=== PATIENT | female | born 1985 | race Asian ===

== ENCOUNTER 2017-11-17 05:18 | Inpatient (IN) | payer OTHER ==
[2017-11-14 13:15] VITALS: BMI 23.7
[2017-11-17] MEDS ORDERED: BUPIVACAINE HCL/PF 0.5% (5MG/ML) 10 ML VIAL ONE (07:39)
[2017-11-17] MEDS ORDERED: GENTAMICIN SO4 80 MG/2 ML VIAL ONE (07:39)
[2017-11-17] MEDS ORDERED: THROMBIN (BOVINE) 5,000 UNIT VIAL TP ONE ×2 (07:40→07:41)
[2017-11-17] MEDS ORDERED: BACITRACIN 15 GM TUBE TOPICAL OINTMENT ONE (07:40)
[2017-11-17] MEDS ORDERED: LIDOCAINE 1%/EPI 1:100000 (20 ML MULTI DOSE VIAL) ONE (07:41)
[2017-11-17] MEDS ORDERED: ROCURONIUM BROMIDE 50 MG/5 ML VIAL ONE ×2 (07:42→09:51)
[2017-11-17] MEDS ORDERED: PROPOFOL 20 ML ONE (07:42)
[2017-11-17] MEDS ORDERED: MIDAZOLAM HCL 2 MG/2 ML SINGLE DOSE VIAL ONE (07:43)
[2017-11-17] MEDS ORDERED: LIDOCAINE HCL/PF 2% SDV 5ML VIAL ONE (07:44)
[2017-11-17] MEDS ORDERED: SCOPOLAMINE HYDROBROMIDE 1 PATCH PATCH.TD72 ONE (08:26)
[2017-11-17] MEDS ORDERED: DESFLURANE GAS 240 ML BOTTLE IH ONE (08:40)
[2017-11-17] MEDS ORDERED: VANCOMYCIN 1,000 MG VIAL (RESTRICTED TO ID ONLY) ONE ×2 (08:41→09:04)
[2017-11-17] MEDS ORDERED: SODIUM CHLORIDE 0.9% P/F 10 ML VIAL IJ ONE ×2 (08:44→09:04)
[2017-11-17] MEDS ORDERED: ceFAZolin SODIUM 1 GM VIAL ONE ×2 (08:44→09:03)
[2017-11-17] MEDS ORDERED: DEXAMETHASONE SOD PHOSPHATE 4 MG/1 ML VIAL ONE (08:47)
[2017-11-17] MEDS ORDERED: ONDANSETRON 4 MG/2 ML VIAL ONE (08:47)
[2017-11-17] MEDS ORDERED: ceFAZolin SODIUM 1 GM VIAL IVPB ONE (09:04)
[2017-11-17] MEDS ORDERED: VANCOMYCIN 1,000 MG VIAL (RESTRICTED TO ID ONLY) IVPB ONE (09:06)
[2017-11-17] MEDS ORDERED: LIDOCAINE 1%/EPI 1:100000 (50 ML MULTI DOSE VIAL) INF ONE (09:35)
[2017-11-17] MEDS ORDERED: GLYCOPYRROLATE 0.2 MG/1 ML VIAL ONE (12:21)
[2017-11-17] MEDS ORDERED: NEOSTIGMINE METHYLSULFATE 0.5 MG/ML - 10 ML MDV ONE (12:22)
[2017-11-17] MEDS ORDERED: BUPIVACAINE HCL/PF 0.5% (5MG/ML) 10 ML VIAL IJ ONE (12:30)
[2017-11-17] MEDS ORDERED: HYDROmorphone HCL CARPU-JECT 1 MG/1 ML DISP.SYRIN IVPUSH PRN (13:16)
[2017-11-17] MEDS ORDERED: PROMETHAZINE HCL 25 MG/1 ML VIAL IVPUSH PRN (13:16)
[2017-11-17] MEDS ORDERED: ONDANSETRON 4 MG/2 ML VIAL IVPUSH PRN ×3 (13:16→15:20)
[2017-11-17] MEDS ORDERED: LACTATED RINGERS SOLUTION 1,000 ML IV SCH (13:30)
[2017-11-17] MEDS ORDERED: SODIUM CHLORIDE 1,000 ML IV SCH (14:00)
[2017-11-17] MEDS ORDERED: oxyCODONE HCL 5 MG TABLET PO PRN ×2 (14:11→14:12)
--- NOTE | 2017-11-17 14:54 | HP ---
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 She had spinal surgery C5- C7 in 2012 and then refusion in [place] that rendered her neck flexed forward. Today, she underwent surgery to correct her cervical kyphosis w cord thethering. We have been consulted for medical management. Limitations to Obtaining History: No Limitations - Past Medical History ...LMP: 11/11/17 ...: No - Smoking History Smoking history: Never smoked - Alcohol/Substance Use Hx Alcohol Use: No Home Medications - Allergies Allergies/Adverse Reactions: Allergies Allergy/AdvReac Type Severity Reaction Status Date / Time No Known Allergies Allergy Verified 11/17/17 06:58 - Home Medications Home Medications: Ambulatory Orders Multivitamin [One Daily] 1 each PO DAILY 11/14/17 Pregabalin [Lyrica] 90 mg PO DAILY 11/14/17 Review of Systems - Review of Systems Constitutional: reports: No Symptoms Eyes: reports: No Symptoms HENT: reports: No Symptoms Neck: reports: Other (neck pain) Cardiovascular: reports: No Symptoms Respiratory: reports: No Symptoms Gastrointestinal: reports: No Symptoms Genitourinary: reports: No Symptoms Musculoskeletal: reports: No Symptoms Neurological: reports: Headache Endocrine: reports: No Symptoms Hematology/Lymphatic: reports: No Symptoms Psychiatric: reports: No Symptoms Physical Examination Vital Signs: Vital Signs Temperature 98.3 F 11/17/17 13:11 Pulse Rate 96 H 11/17/17 14:25 Respiratory Rate 14 11/17/17 14:25 Blood Pressure 96/53 11/17/17 14:25 O2 Sat by Pulse Oximetry (%) 100 11/17/17 14:25 Constitutional: Yes: Calm HENT: Yes: WNL Neck: Yes: Other (C collar placed, + neck tenderness, + JENNIFER drain sanguinous drainage (scant)) Cardiovascular: Yes: Regular Rate and Rhythm, S1, S2 Respiratory: Yes: Regular, Other (clear anteriorly) Gastrointestinal: Yes: Soft Renal/: Yes: Burnham Present Edema: No Peripheral Pulses WNL: Yes Neurological: Yes: Alert, Oriented Imaging - Results Chest X-ray: Report Reviewed Cat Scan: Report Reviewed Assessment/Plan 31 year old female s/p cervical fusion surgery Plan: 1. Cervical surgery - s/p C4-T1 fusion, C5-C7, with unteathering of spinal cord - Maintain C collar 23 hrs/day - Maintain jennifer drain - Complete post op abx-cefazolin - Aggressive pain control - Cont gentle LR - Regular diet - Maintain tr burnham tomorrow - Neurosurgery following 2. DVT ppc - SCDs Visit type - Emergency Visit Emergency Visit: Yes ED Registration Date: 11/17/17 Care time: The patient presented to the Emergency Department on the above date and was hospitalized for further evaluation of their emergent condition. - New Patient This patient is new to me today: Yes Date on this admission: 11/17/17 - Critical Care Critical Care patient: No
[2017-11-17] MEDS ORDERED: PROMETHAZINE HCL 25 MG/1 ML VIAL IVPB PRN (15:20)
[2017-11-17] MEDS ORDERED: DEXAMETHASONE SOD PHOSPHATE 4 MG/1 ML VIAL IVPUSH PRN (15:20)
[2017-11-17] MEDS ORDERED: HYDROmorphone *PCA* 6MG/30ML DISP.SYRIN PCA ONE ×2 (15:28→23:22)
[2017-11-17] MEDS ORDERED: CEFAZOLIN 1 GM PUSH 1 GM/10 ML DISP.SYRIN IVPUSH SCH (17:00)
[2017-11-17] MEDS ORDERED: FLU VACCINE QUAD 60 MCG/0.5 ML (MDV 17-18) IM ONE (17:00)
[2017-11-17] MEDS: HEPARIN NA (PORCINE) 5,000 UNITS/ML 1ML VIAL SQ SCH (17:27)
--- NOTE | 2017-11-17 20:40 | CONSULT ---
Consult Consult Specialty:: Pulm/CCM - History of Present Illness Chief Complaint: Cervical Kyphosis s/p surgical spine fusion History of Present Illness: 31 juan luis with PMHx of neurofibromatosis. She is s/p spinal surgery C5-C7 in [place] 2012 with refusion in [place] c/b cervical kyphosis and neck pain She is now s/ p C4-T1 fusion with untethering of spinal cord . She is transferred to ICU for post-op management. In ICU rec'd HD stable, drowsy but oriented and moving all extremities. C/o surgical site pain 5-6/10 and of persistent BUE numbness. Getting PRODUCT MARKETING ANALYST dilaudid. - History Source History Provided By: Patient, Medical Record - Past Medical History ...LMP: 11/11/17 ...: No - Alcohol/Substance Use Hx Alcohol Use: No - Smoking History Smoking history: Never smoked - Social History ADL: Independent Home Medications - Allergies Allergies/Adverse Reactions: Allergies Allergy/AdvReac Type Severity Reaction Status Date / Time No Known Allergies Allergy Verified 11/17/17 06:58 - Home Medications Home Medications: Ambulatory Orders Multivitamin [One Daily] 1 each PO DAILY 11/14/17 Pregabalin [Lyrica] 90 mg PO DAILY 11/14/17 Family Disease History - Family Disease History Family History: Unremarkable Review of Systems - Review of Systems Constitutional: reports: No Symptoms Eyes: reports: No Symptoms (Neck pain) Neck: reports: Pain on Movement, Stiffness Cardiovascular: reports: No Symptoms Respiratory: reports: No Symptoms Gastrointestinal: reports: No Symptoms Genitourinary: reports: No Symptoms Integumentary: reports: No Symptoms Neurological: reports: Dizziness, Numbness (numbness in upper extremity) Endocrine: reports: No Symptoms Hematology/Lymphatic: reports: No Symptoms Psychiatric: reports: No Symptoms Physical Exam Vital Signs: Vital Signs Temperature 98 F 11/17/17 15:52 Pulse Rate 94 H 11/17/17 18:49 Respiratory Rate 22 11/17/17 18:49 Blood Pressure 111/83 11/17/17 18:49 O2 Sat by Pulse Oximetry (%) 100 11/17/17 14:40 Constitutional: Yes: Well Nourished, No Distress, Calm Eyes: Yes: WNL, PERRL HENT: Yes: Atraumatic, Normocephalic Neck: Yes: Other (Cervical collar in Place. Posterior PARTHA to bulb suction with small amt dark bloody fluid) Cardiovascular: Yes: Regular Rate and Rhythm, Tachycardia, S1, S2 Respiratory: Yes: CTA Bilaterally, On Nasal O2 Gastrointestinal: Yes: Normal Bowel Sounds, Soft Renal/: Yes: Burnham Present Extremities: Yes: WNL Edema: No Integumentary: Yes: WNL Wound/Incision: Yes: Dressing Dry and Intact Neurological: Yes: Oriented, Numbness (Drowsy; c/o numbness in bilat fingers and pain at surgical site) ...Motor Strength: WNL Labs: Current Medications Acetaminophen (Tylenol -) 650 mg PO Q6H PRN PRN Reason: FEVER Chlorhexidine Gluconate (Hibiclens For Decolonization -) 1 applic TP HS [facility] Fentanyl (Sublimaze Injection -) 50 mcg IVPUSH [id number] PRN PRN Reason: PAIN-PACU ORDER X 4 DOSES ONLY Fentanyl (Sublimaze Injection -) 50 mcg IVPUSH [id number] PRN PRN Reason: PAIN-PACU ORDER X 4 DOSES ONLY Last Admin: 11/17/17 14:40 Dose: 50 mcg Gabapentin (Neurontin -) 300 mg PO BID [facility] Heparin Sodium (Porcine) (Heparin -) 5,000 unit SQ Q8H-IV [facility] Last Admin: 11/17/17 17:27 Dose: 5,000 unit Hydromorphone HCl (Dilaudid Injection -) 0.5 mg IVPUSH [id number] PRN PRN Reason: MODERATE PAIN Hydromorphone HCl (Dilaudid Cooler Deliverer -) 0 mg PRODUCT MARKETING ANALYST PRODUCT MARKETING ANALYST LISS PRN Reason: Protocol Stop: 11/24/17 15:20 Sodium Chloride (Normal Saline -) 1,000 mls @ 100 mls/hr IV ASDIR [facility] Last Admin: 11/17/17 15:00 Dose: 0 mls Cefazolin Sodium (Ancef -) 1 gm in 10 mls @ 120 mls/hr IVPUSH Q8H-IV [facility] Mupirocin (Bactroban Ointment (For Decolonization) -) 1 applic NS BID [facility] Stop: 11/22/17 21:59 Ondansetron HCl (Zofran Injection) 4 mg IVPUSH Q4H PRN PRN Reason: NAUSEA AND/OR VOMITING Oxycodone HCl (Roxicodone -) 5 mg PO Q4H PRN PRN Reason: PAIN LEVEL 1-5 Oxycodone HCl (Roxicodone -) 10 mg PO Q4H PRN PRN Reason: PAIN LEVEL 6-10 Pantoprazole Sodium (Protonix -) 40 mg PO DAILY [facility] Promethazine HCl (Phenergan Injection -) 12.5 mg IVPUSH Q6H PRN PRN Reason: NAUSEA-FOR RESCUE AFTER 15 MIN Promethazine HCl (Phenergan Injection -) 12.5 mg IVPB Q6H PRN PRN Reason: NAUSEA AND/OR VOMITING Vital Signs Period Temp Pulse Resp BP Sys/Pastrana Pulse Ox Last 24 Hr 98 F-98.3 F 81-113 12-22 94-126/51-83 100-100 Problem List - Problems (1) Neck pain Code(s): M54.2 - CERVICALGIA (2) Cervical kyphosis Code(s): M40.202 - UNSPECIFIED KYPHOSIS, CERVICAL REGION (3) Neuropathy Code(s): G62.9 - POLYNEUROPATHY, UNSPECIFIED (4) Post-op pain Code(s): G89.18 - OTHER ACUTE POSTPROCEDURAL PAIN (5) S/P spinal surgery Code(s): Z98.890 - OTHER SPECIFIED POSTPROCEDURAL STATES Assessment/Plan 31 juan luis with PMHx of neurofibromatosis s/p spinal surgery C5-C7 in 2012 with refusion c/b cervical kyphosis and neck pain She is now s/p C4-T1 fusion with untethering of spinal cord . She is transferred to ICU for post-op management. Plan: -Post-op management as per neuro surgery -Maintain cervical collar -Maintain PARTHA to bulb; monitor output -Neuro checks -Continue Kefzol -Cont IV infusion -Maintain burnham cath -Dilaudid PRODUCT MARKETING ANALYST for post-op pain -Aspiration precautions re drowsiness -SCDs for DVT prophylaxis RAYMOND Parikh CC time 35mins
[2017-11-17] MEDS: CHLORHEXIDINE GLUCONATE 4% CLEANSER FOR DECOLONIZATION TP SCH (21:48)
[2017-11-17] MEDS: MUPIROCIN 2% TOPICAL OINTMENT FOR DECOLONIZATION NS SCH (21:48)
[2017-11-17] MEDS: GABAPENTIN 300 MG CAPSULE (FP) PO SCH (21:48)
[2017-11-17] MEDS: HYDROmorphone *PCA* 10MG/50ML DISP.SYRIN PCA SCH (21:49)
[2017-11-18] MEDS: CEFAZOLIN 1 GM PUSH 1 GM/10 ML DISP.SYRIN IVPUSH SCH ×3 (01:45→17:14)
[2017-11-18] MEDS: HEPARIN NA (PORCINE) 5,000 UNITS/ML 1ML VIAL SQ SCH ×4 (01:49→21:53)
[2017-11-18 06:08] LABS: HEMATOCRIT 29.6 % (32.4-45.2); HEMOGLOBIN 9.6 GM/dL (10.7-15.3); MCH 29.5 pg (25.7-33.7); MCHC 32.4 g/dl (32.0-36.0); MEAN CELL VOLUME 91.1 fl (80-96); MEAN PLT VOLUME 8.9 fl (7.5-11.1); PLATELET COUNT 283 K/MM3 (134-434); RBC 3.25 M/mm3 (3.60-5.2); RDW 13.6 % (11.6-15.6); WHITE BLOOD COUNT 7.7 K/mm3 (4.0-10.0)
[2017-11-18 06:43] LABS: CHLORIDE 104 mmol/L (98-107); SODIUM 140 mmol/L (136-145)
[2017-11-18 06:56] LABS: ALBUMIN 2.8 g/dl (3.4-5.0); ALK PHOS 57 U/L (45-117); ANION GAP 7 (8-16); BILIRUBIN,TOTAL 0.6 mg/dL (0.2-1.0); BLOOD UREA NITROGEN 3 mg/dL (7-18); CALCIUM 7.9 mg/dL (8.5-10.1); CO2 29 mmol/L (21-32); CREATININE 0.4 mg/dL (0.55-1.02); GLUCOSE,RANDOM 89 mg/dL (74-106); SGOT/AST 19 U/L (15-37); SGPT/ALT 16 U/L (12-78); TOT PROT 5.9 g/dl (6.4-8.2)
--- NOTE | 2017-11-18 09:01 | PN ---
Progress Note (short form) - Note Progress Note: Post op day#1.S/P C4-T1 Poserior exploration of spine with decompression,C7-T1 osteotomy,C4-T1 instrumentation with fusion and durotomy with untethering of spinal cord under GA uneventful.P 100,Bp99/48 and Spo2 100% on O2 #L NC.Patient stable and c/o pain score of 4-5/10 on Dilaudid HOSPICE NURSE PRACTITIONER,Neurontin and Oxycodone PRN.Will continue HOSPICE NURSE PRACTITIONER today and will f/u.
[2017-11-18] MEDS: GABAPENTIN 300 MG CAPSULE (FP) PO SCH ×2 (10:08→21:55)
[2017-11-18] MEDS: PANTOPRAZOLE 40 MG TABLET (FP) PO SCH (10:08)
[2017-11-18] MEDS: MUPIROCIN 2% TOPICAL OINTMENT FOR DECOLONIZATION NS SCH ×2 (11:04→21:54)
--- NOTE | 2017-11-18 11:09 | PN ---
Teaching Attending Note Name of Resident: Hector Perez ATTENDING PHYSICIAN STATEMENT I saw and evaluated the patient. I reviewed the resident's note and discussed the case with the resident. I agree with the resident's findings and plan as documented. SUBJECTIVE: Patient seen and examined in the ICU. Drowsy but arousbale on Dilaudid HUMAN RESOURCES MANAGER MANUFACTURING. Hemodynamics stable and afebrile overnight. Reports pain at the surgical site and numbness in the upper extremities. No CP or SOB. Intake & Output 11/15/17 11/16/17 11/17/17 11/18/17 23:59 23:59 23:59 23:59 Intake Total 2410 1150 Output Total 1745 830 Balance 665 320 Last Vital Signs Temp Pulse Resp BP Pulse Ox 98 F 106 H 16 102/60 100 11/18/17 06:00 11/18/17 10:00 11/18/17 10:31 11/18/17 10:00 11/18/17 10:31 Active Medications Acetaminophen (Tylenol -) 650 mg PO Q6H PRN PRN Reason: FEVER Chlorhexidine Gluconate (Hibiclens For Decolonization -) 1 applic TP HS [facility] Last Admin: 11/17/17 21:48 Dose: 1 applic Gabapentin (Neurontin -) 300 mg PO BID [facility] Last Admin: 11/18/17 10:08 Dose: 300 mg Heparin Sodium (Porcine) (Heparin -) 5,000 unit SQ TID [facility] Hydromorphone HCl (Dilaudid Injection -) 0.5 mg IVPUSH [id number] PRN PRN Reason: MODERATE PAIN Hydromorphone HCl (Dilaudid Shrimp Peeler -) 0 mg HUMAN RESOURCES MANAGER MANUFACTURING HUMAN RESOURCES MANAGER MANUFACTURING LISS PRN Reason: Protocol Stop: 11/24/17 15:20 Last Admin: 11/17/17 21:49 Dose: Not Given Cefazolin Sodium (Ancef -) 1 gm in 10 mls @ 120 mls/hr IVPUSH Q8H-IV [facility] Last Admin: 11/18/17 10:08 Dose: 120 mls/hr Mupirocin (Bactroban Ointment (For Decolonization) -) 1 applic NS BID [facility] Stop: 11/22/17 21:59 Last Admin: 11/18/17 11:04 Dose: 1 applic Ondansetron HCl (Zofran Injection) 4 mg IVPUSH Q4H PRN PRN Reason: NAUSEA AND/OR VOMITING Pantoprazole Sodium (Protonix -) 40 mg PO DAILY [facility] Last Admin: 11/18/17 10:08 Dose: 40 mg Promethazine HCl (Phenergan Injection -) 12.5 mg IVPUSH Q6H PRN PRN Reason: NAUSEA-FOR RESCUE AFTER 15 MIN Promethazine HCl (Phenergan Injection -) 12.5 mg IVPB Q6H PRN PRN Reason: NAUSEA AND/OR VOMITING Constitutional: Yes: Drowsy, but easily arousable Eyes: Yes: WNL, PERRL HENT: Yes: Atraumatic, Normocephalic Neck: Yes: Other (Cervical collar in Place. Posterior PARTHA to bulb suction with small amt dark bloody fluid) Cardiovascular: Yes: Regular Rate and Rhythm, Tachycardia, S1, S2 Respiratory: Yes: CTA Bilaterally, On Nasal O2 Gastrointestinal: Yes: Normal Bowel Sounds, Soft Renal/: Yes: Mcginnis Present Extremities: Yes: WNL Edema: No Integumentary: Yes: WNL Wound/Incision: Yes: Dressing Dry and Intact Neurological: Yes: Drowsy, Numbness in UE ...Motor Strength: WNL Labs: Laboratory Results - last 24 hr 11/18/17 11/18/17 05:17 05:17 WBC 7.7 RBC 3.25 L Hgb 9.6 L D Hct 29.6 L MCV 91.1 MCH 29.5 MCHC 32.4 RDW 13.6 Plt Count 283 D MPV 8.9 Sodium 140 Potassium 4.0 Chloride 104 Carbon Dioxide 29 Anion Gap 7 L BUN 3 L Creatinine 0.4 L Creat Clearance w eGFR > 60 Random Glucose 89 Calcium 7.9 L Total Bilirubin 0.6 D AST 19 ALT 16 Alkaline Phosphatase 57 Total Protein 5.9 L Albumin 2.8 L Problem List - Problems (1) Neck pain Code(s): M54.2 - CERVICALGIA (2) Cervical kyphosis Code(s): M40.202 - UNSPECIFIED KYPHOSIS, CERVICAL REGION (3) Neuropathy Code(s): G62.9 - POLYNEUROPATHY, UNSPECIFIED (4) Post-op pain Code(s): G89.18 - OTHER ACUTE POSTPROCEDURAL PAIN (5) S/P spinal surgery Code(s): Z98.890 - OTHER SPECIFIED POSTPROCEDURAL STATES Assessment/Plan Neurofibromatosis S/P spinal surgery C5-C7 in 2013 Cervical kyphosis S/P C4-T1 fusion with untethering of the spinal cord PLAN: -Post-op management as per neuro surgery -Maintain cervical collar -Maintain PARTHA to bulb; monitor output -Neuro checks -Continue Kefzol -Strict I & O -Dilaudid HUMAN RESOURCES MANAGER MANUFACTURING for post-op pain -Aspiration precautions -SCDs for DVT prophylaxis Dr Bergman
--- NOTE | 2017-11-18 11:26 | PN ---
Physical Exam: SUBJECTIVE: Patient seen and examined 31 y.o. F with neurofibromatosis POD # 1 for c4-t1 fusion with untethering of spinal cord. Patient in significant pain this morning on dilaudid INJECTION PRESS OPERATOR. Pain is in the neck and hands with numbness. Denies chest pain, abdominal pain. Eating well OBJECTIVE: Vital Signs Period Temp Pulse Resp BP Sys/Pastrana Pulse Ox Last 24 Hr 97.2 F-98.3 F 77-114 12-22 90-122/44-83 100-100 GENERAL: The patient is awake, alert, and fully oriented. Drowsy HEAD: Normal with no signs of trauma. EYES:Extraocular movements intact, sclera anicteric, conjunctiva clear. No ptosis. ENT: Oropharynx clear without exudates, moist mucous membranes. C-collar in place NECK: Trachea midline LUNGS: Breath sounds equal, clear to auscultation bilaterally, no wheezes, no crackles, no accessory muscle use. HEART: Tachycardic, S1, S2 without murmur, rub or gallop. ABDOMEN: Soft, nontender, nondistended, normoactive bowel sounds, no guarding, no rebound, no hepatosplenomegaly, no masses. NEUROLOGICAL: Numbness in b/l UE. CN intact PSYCH: Normal mood, normal affect. SKIN: Warm, dry, normal turgor, no rashes or lesions noted Laboratory Results - last 24 hr 11/18/17 11/18/17 05:17 05:17 WBC 7.7 RBC 3.25 L Hgb 9.6 L D Hct 29.6 L MCV 91.1 MCH 29.5 MCHC 32.4 RDW 13.6 Plt Count 283 D MPV 8.9 Sodium 140 Potassium 4.0 Chloride 104 Carbon Dioxide 29 Anion Gap 7 L BUN 3 L Creatinine 0.4 L Creat Clearance w eGFR > 60 Random Glucose 89 Calcium 7.9 L Total Bilirubin 0.6 D AST 19 ALT 16 Alkaline Phosphatase 57 Total Protein 5.9 L Albumin 2.8 L Active Medications Generic Name Dose Route Start Last Admin Trade Name Freq PRN Reason Stop Dose Admin Acetaminophen 650 mg 11/17/17 13:52 Tylenol - PO Q6H PRN FEVER Chlorhexidine Gluconate 1 applic 11/17/17 22:00 11/17/17 21:48 Hibiclens For Decolonization - TP 1 applic HS [facility]ISS Administration Gabapentin 300 mg 02/08/18 22:00 11/18/17 10:08 Neurontin - PO 300 mg BID LISS Administration Heparin Sodium (Porcine) 5,000 unit 11/18/17 06:00 Heparin - SQ TID [facility] Hydromorphone HCl 0.5 mg 11/17/17 13:16 Dilaudid Injection - IVPUSH [id number] PRN MODERATE PAIN Hydromorphone HCl 0 mg 11/17/17 15:30 11/17/17 21:49 Dilaudid Belt Puncher - INJECTION PRESS OPERATOR 11/24/17 15:20 Not Given INJECTION PRESS OPERATOR [facility] Protocol Cefazolin Sodium 1 gm in 10 mls @ 120 mls/hr 11/18/17 02:00 11/18/17 10:08 Ancef - IVPUSH 120 mls/hr Q8H-IV [facility] Administration Mupirocin 1 applic 11/17/17 22:00 11/18/17 11:04 Bactroban Ointment (For Decolonization) - NS 11/22/17 21:59 1 applic BID [facility] Administration Ondansetron HCl 4 mg 11/17/17 15:20 Zofran Injection IVPUSH Q4H PRN NAUSEA AND/OR VOMITING Pantoprazole Sodium 40 mg 11/18/17 10:00 11/18/17 10:08 Protonix - PO 40 mg DAILY [facility]ISS Administration Promethazine HCl 12.5 mg 11/17/17 13:16 Phenergan Injection - IVPUSH Q6H PRN NAUSEA-FOR RESCUE AFTER 15 MIN Promethazine HCl 12.5 mg 11/17/17 15:20 Phenergan Injection - IVPB Q6H PRN NAUSEA AND/OR VOMITING ASSESSMENT/PLAN: 31 y.o. with PMH of neurofibromatosis s/p spinal surgery C5-C7 in 2012 with refusion c/b cervical kyphosis and neck pain She is now s/p C4-T1 fusion with untethering of spinal cord #Neuro POD #1 C4-T1 Fusion -Dilaudid CPA -Ancef -Zofran/phenergan/tyloenol/fentanyl/oxy prn for pain control -Neuronton BID -Monitor PARTHA drain output drainage -Neuro Checks -Maintain c-collar - #FEN/GI -NS @ 100 cc/hr -wnl -Regular diet #PPx -Protonix 40 mg daily -Heparin 5000 u sq tid #Dispo: Continue ICU level of care Visit type - Emergency Visit Emergency Visit: Yes ED Registration Date: 11/17/17 Care time: The patient presented to the Emergency Department on the above date and was hospitalized for further evaluation of their emergent condition. - New Patient This patient is new to me today: No - Critical Care Critical Care patient: Yes Total Critical Care Time (in minutes): 35 Critical Care Statement: The care of this patient involved high complexity decision making to prevent further life threatening deterioration of the patient 's condition and/or to evaluate & treat vital organ system(s) failure or risk of failure.
[2017-11-18] MEDS ORDERED: HYDROmorphone *PCA* 6MG/30ML DISP.SYRIN PCA ONE (11:36)
[2017-11-18] MEDS: HYDROmorphone *PCA* 10MG/50ML DISP.SYRIN PCA SCH (11:41)
--- NOTE | 2017-11-18 14:42 | OP ---
Operative Note - Note: Operative Date: 11/17/17 Pre-Operative Diagnosis: c-spine deformity, s/p ACDF and tethering of c spine Operation: Exploration of spinal fusion C4-T1 Laminectomies, C7-T1 osteotomies, posterior fusion C4-T1 with correction of deformity, microsurgical untethering of spinal cord. Post-Operative Diagnosis: Same as Pre-op Surgeon: Jarett Bowers Featheredge Machine Operator: Shanthi Rodriguez Anesthesiologist/SALT WASHER HARVESTING STATION: Reggie Hutchins Anesthesia: General Specimens Removed: Posterior hardware Estimated Blood Loss (mls): 150 Fluid Volume Replaced (mls): 1,500 Operative Report Dictated: Yes
--- NOTE | 2017-11-18 14:43 | SURG ---
Surgery Security Auditor Note Security Auditor: Shanthi Rodriguez PA-C Date of Service: 11/17/17 Diagnosis: c-spine deformity, s/p ACDF and tethering of spinal cord Procedure: Exploration of spinal fusion C4-T1 Laminectomies, C7-T1 osteotomies, posterior fusion C4-T1 with correction of deformity, microsurgical untethering of spinal cord. I was present for the entirety of the operative procedure. For further detail, please refer to operative report. Visit type - Case Type Case Type: Scheduled Admission - Emergency Emergency Visit: No - New patient This patient is new to me today: Yes Date on this admission: 11/18/17
--- NOTE | 2017-11-18 15:00 | PN ---
Physical Exam: SUBJECTIVE: Patient seen and examined in ICU. She c/o of pain and thirst. OBJECTIVE: Vital Signs Period Temp Pulse Resp BP Sys/Pastrana Pulse Ox Last 24 Hr 97.2 F-98.3 F 77-114 12-22 90-122/44-83 100-100 PE Neuro: alert, awake, cn 2-12intact + 5/5 motor, sensation intact HEENT: + c collar in place, JENNIFER drain with sanguinous output Pulm: diminished anteriorly CV: s1 s2 rrr no mrg Abd: s nd nt + bc : burnham Ext: warm, no le edema Laboratory Results - last 24 hr 11/18/17 11/18/17 05:17 05:17 WBC 7.7 RBC 3.25 L Hgb 9.6 L D Hct 29.6 L MCV 91.1 MCH 29.5 MCHC 32.4 RDW 13.6 Plt Count 283 D MPV 8.9 Sodium 140 Potassium 4.0 Chloride 104 Carbon Dioxide 29 Anion Gap 7 L BUN 3 L Creatinine 0.4 L Creat Clearance w eGFR > 60 Random Glucose 89 Calcium 7.9 L Total Bilirubin 0.6 D AST 19 ALT 16 Alkaline Phosphatase 57 Total Protein 5.9 L Albumin 2.8 L Active Medications Generic Name Dose Route Start Last Admin Trade Name Freq PRN Reason Stop Dose Admin Acetaminophen 650 mg 11/17/17 13:52 Tylenol - PO Q6H PRN FEVER Chlorhexidine Gluconate 1 applic 11/17/17 22:00 11/17/17 21:48 Hibiclens For Decolonization - TP 1 applic HS [facility] Administration Gabapentin 300 mg 11/17/17 22:00 11/18/17 10:08 Neurontin - PO 300 mg BID [facility] Administration Heparin Sodium (Porcine) 5,000 unit 11/18/17 06:00 Heparin - SQ TID [facility] Hydromorphone HCl 0.5 mg 11/17/17 13:16 Dilaudid Injection - IVPUSH [id number] PRN MODERATE PAIN Hydromorphone HCl 0 mg 11/17/17 15:30 11/18/17 11:41 Dilaudid Psychotherapist Counselor - ENVIRONMENTAL COMPLIANCE INSPECTOR 11/24/17 15:20 1 mg ENVIRONMENTAL COMPLIANCE INSPECTOR LISS Administration Protocol Cefazolin Sodium 1 gm in 10 mls @ 120 mls/hr 11/18/17 02:00 11/18/17 10:08 Ancef - IVPUSH 120 mls/hr Q8H-IV [facility] Administration Mupirocin 1 applic 11/17/17 22:00 11/18/17 11:04 Bactroban Ointment (For Decolonization) - NS 11/22/17 21:59 1 applic BID [facility] Administration Ondansetron HCl 4 mg 11/17/17 15:20 Zofran Injection IVPUSH Q4H PRN NAUSEA AND/OR VOMITING Pantoprazole Sodium 40 mg 11/18/17 10:00 11/18/17 10:08 Protonix - PO 40 mg DAILY [facility] Administration Promethazine HCl 12.5 mg 11/17/17 13:16 Phenergan Injection - IVPUSH Q6H PRN NAUSEA-FOR RESCUE AFTER 15 MIN Promethazine HCl 12.5 mg 11/17/17 15:20 Phenergan Injection - IVPB Q6H PRN NAUSEA AND/OR VOMITING Assessment: 31 year old female s/p cervical fusion surgery Plan: 1. Cervical surgery - s/p C4-T1 fusion, C5-C7, with unteathering of spinal cord 11/17 - Maintain C collar 23 hrs/day - Maintain jennifer drain - Continue abx until JENNIFER drain pulled - Maintain burnham until cuff runner pump discontinued - Regular diet - Neurontin 300mg BID - Post op care per Neurosurgery 2. DVT ppx - Heparin sq Visit type - Emergency Visit Emergency Visit: Yes ED Registration Date: 11/17/17 Care time: The patient presented to the Emergency Department on the above date and was hospitalized for further evaluation of their emergent condition. - New Patient This patient is new to me today: No - Critical Care Critical Care patient: No
[2017-11-18] MEDS: ACETAMINOPHEN 325 MG TABLET (FP) PO PRN (18:45)
[2017-11-18] MEDS ORDERED: SODIUM CHLORIDE 0.9% 1000 ML INFUS.BAG IV ONE (20:33)
[2017-11-18] MEDS ORDERED: HEMOQUE CONTROL SOLUTION ONE (21:31)
[2017-11-18] MEDS: CHLORHEXIDINE GLUCONATE 4% CLEANSER FOR DECOLONIZATION TP SCH (21:55)
[2017-11-18] MEDS ORDERED: DOCUSATE SODIUM 100 MG CAPSULE (FP) PO PRN (23:47)
[2017-11-19] MEDS: CEFAZOLIN 1 GM PUSH 1 GM/10 ML DISP.SYRIN IVPUSH SCH ×3 (02:35→17:17)
[2017-11-19] MEDS: HEPARIN NA (PORCINE) 5,000 UNITS/ML 1ML VIAL SQ SCH ×3 (05:40→22:02)
[2017-11-19 06:30] LABS: HEMATOCRIT 27.7 % (32.4-45.2); HEMOGLOBIN 9.1 GM/dL (10.7-15.3); MCH 30.1 pg (25.7-33.7); MEAN CELL VOLUME 91.4 fl (80-96); MEAN PLT VOLUME 8.6 fl (7.5-11.1); PLATELET COUNT 255 K/MM3 (134-434); RBC 3.03 M/mm3 (3.60-5.2); RDW 13.3 % (11.6-15.6); WHITE BLOOD COUNT 6.2 K/mm3 (4.0-10.0)
[2017-11-19] MEDS: ACETAMINOPHEN 325 MG TABLET (FP) PO PRN ×2 (06:41→16:03)
[2017-11-19 07:01] LABS: ALBUMIN 2.6 g/dl (3.4-5.0); ANION GAP 4 (8-16); CALCIUM 7.5 mg/dL (8.5-10.1); CHLORIDE 102 mmol/L (98-107); CO2 33 mmol/L (21-32); GLUCOSE,RANDOM 86 mg/dL (74-106); POTASSIUM 3.6 mmol/L (3.5-5.1); SGPT/ALT 15 U/L (12-78); SODIUM 139 mmol/L (136-145)
[2017-11-19 07:04] LABS: ALK PHOS 55 U/L (45-117); BILIRUBIN,TOTAL 0.6 mg/dL (0.2-1.0); BLOOD UREA NITROGEN 3 mg/dL (7-18); CREATININE 0.3 mg/dL (0.55-1.02); SGOT/AST 13 U/L (15-37); TOT PROT 5.6 g/dl (6.4-8.2)
--- NOTE | 2017-11-19 08:36 | PN ---
Physical Exam: SUBJECTIVE: Patient seen and examined in ICU. Complains of odynophagia and tingling to bilateral hands. OBJECTIVE: Vital Signs Period Temp Pulse Resp BP Sys/Pastrana Pulse Ox Last 24 Hr 98.4 F-98.8 F 61-108 15-20 90-107/41-65 100-100 GENERAL: The patient is awake, alert, and fully oriented, in no acute distress. ENT: oropharynx clear without exudates, moist mucous membranes. NECK: [place] J in place. PARTHA with sanguinous drainage. LUNGS: Diminished anteriorly. HEART: RRR, S1, S2 no m/r/g ABDOMEN: SNTND NEUROLOGICAL: Cranial nerves II through XII grossly intact. Strength 5/5 in all extremities. Equal sensation noted. Laboratory Results - last 24 hr 11/19/17 11/19/17 06:15 06:15 WBC 6.2 RBC 3.03 L Hgb 9.1 L Hct 27.7 L MCV 91.4 MCH 30.1 MCHC 33.0 RDW 13.3 Plt Count 255 MPV 8.6 Sodium 139 Potassium 3.6 Chloride 102 Carbon Dioxide 33 H Anion Gap 4 L BUN 3 L Creatinine 0.3 L Creat Clearance w eGFR > 60 Random Glucose 86 Calcium 7.5 L Total Bilirubin 0.6 AST 13 L ALT 15 Alkaline Phosphatase 55 Total Protein 5.6 L Albumin 2.6 L Active Medications Generic Name Dose Route Start Last Admin Trade Name Freq PRN Reason Stop Dose Admin Acetaminophen 650 mg 11/17/17 13:52 11/19/17 06:41 Tylenol - PO 650 mg Q6H PRN Administration FEVER Chlorhexidine Gluconate 1 applic 11/17/17 22:00 11/18/17 21:55 Hibiclens For Decolonization - TP 1 applic HS LISS Administration Docusate Sodium 100 mg 11/18/17 23:47 Colace - PO TID PRN CONSTIPATION Gabapentin 300 mg 11/17/17 22:00 11/18/17 21:55 Neurontin - PO 300 mg BID LISS Administration Heparin Sodium (Porcine) 5,000 unit 11/18/17 06:00 11/19/17 05:40 Heparin - SQ 5,000 unit TID LISS Administration Hydromorphone HCl 0.5 mg 11/17/17 13:16 Dilaudid Injection - IVPUSH [id number] PRN MODERATE PAIN Hydromorphone HCl 0 mg 11/17/17 15:30 11/18/17 11:41 Dilaudid Pricing Coordinator - MACHINE PRINTER HOSE 11/24/17 15:20 1 mg MACHINE PRINTER HOSE LISS Administration Protocol Cefazolin Sodium 1 gm in 10 mls @ 120 mls/hr 11/18/17 02:00 11/19/17 02:35 Ancef - IVPUSH 120 mls/hr Q8H-IV LISS Administration Mupirocin 1 applic 11/17/17 22:00 11/18/17 21:54 Bactroban Ointment (For Decolonization) - NS 11/22/17 21:59 1 applic BID LISS Administration Ondansetron HCl 4 mg 11/17/17 15:20 Zofran Injection IVPUSH Q4H PRN NAUSEA AND/OR VOMITING Pantoprazole Sodium 40 mg 11/18/17 10:00 11/18/17 10:08 Protonix - PO 40 mg DAILY LISS Administration Promethazine HCl 12.5 mg 11/17/17 13:16 Phenergan Injection - IVPUSH Q6H PRN NAUSEA-FOR RESCUE AFTER 15 MIN Promethazine HCl 12.5 mg 11/17/17 15:20 Phenergan Injection - IVPB Q6H PRN NAUSEA AND/OR VOMITING Senna/Docusate Sodium 1 tablet 11/19/17 22:00 Pericolace - PO HS [facility] ASSESS[facility]PLAN: A: 31yo woman s/p repair of cervical kyphosis with tethering of spinal cord on 11/17 P: s/p Exploration of spinal fusion C4-T1 Laminectomies, C7-T1 osteotomies, posterior fusion C4-T1 with correction of deformity, microsurgical untethering of spinal cord POD #2 - C-collar per neurosurgery - drain to suction with sanguinous drainage - continue Ancef until PARTHA removed - desktop publishing associate dilaudid per anesthesia - continue burnham until MACHINE PRINTER HOSE d/c'd - Neurontin - post-op care per Neurosurgery F/E/N - Regular diet - replete prn PPX - sqh Dispo- transfer to floor when bed available Visit type - Emergency Visit Emergency Visit: No - New Patient This patient is new to me today: Yes Date on this admission: 11/20/17 - Critical Care Critical Care patient: No
[2017-11-19] MEDS: PANTOPRAZOLE 40 MG TABLET (FP) PO SCH (09:01)
[2017-11-19] MEDS: GABAPENTIN 300 MG CAPSULE (FP) PO SCH ×2 (09:01→22:02)
[2017-11-19] MEDS: MUPIROCIN 2% TOPICAL OINTMENT FOR DECOLONIZATION NS SCH ×2 (09:02→22:02)
[2017-11-19] MEDS ORDERED: HYDROmorphone *PCA* 6MG/30ML DISP.SYRIN PCA SCH (11:09)
[2017-11-19] MEDS: HYDROmorphone *PCA* 6MG/30ML DISP.SYRIN PCA SCH (11:24)
--- NOTE | 2017-11-19 13:33 | PN ---
Progress Note (short form) - Note Progress Note: Anesthesia PC note: POD#2 S/P S/P C4-T1 Poserior exploration of spine with decompression,C7-T1 osteotomy,C4-T1 instrumentation with fusion and durotomy with untethering of spinal cord under GA. Pat Seen and examined. Doing PT at [facility]. C/O Continuous pain 6/10 with no improvement by BLOCK CABLEMAN which she has been using. VSS. NAD.Tolerating liquid po better than solid. On Gabapentin and tylenol in addition to BLOCK CABLEMAN. Have not been receiving additional dose of Dilaudid for breakthrough pain. A/P: Continue BLOCK CABLEMAN, encouraging RN to give additional dose of Dilaudid for break through pain. will follow up.
[2017-11-19] MEDS ORDERED: FLU VACCINE QUAD 60 MCG/0.5 ML (MDV 17-18) IM ONE (14:15)
--- NOTE | 2017-11-19 21:54 | PN ---
Progress Note (short form) - Note Progress Note: CCM SUBJECTIVE: 24Hr: no events, pain controlled awaiting bed on floor. Vital Signs Temp 99.8 F H 11/19/17 16:00 Pulse 84 11/19/17 20:39 Resp 16 11/19/17 20:39 BP 102/59 11/19/17 20:39 Pulse Ox 100 11/19/17 20:39 Intake & Output 11/18/17 11/19/17 11/19/17 23:59 11:59 23:59 Intake Total 800 1150 510 Output Total 705 410 200 Balance 95 740 310 Weight 67.585 kg Intake: IV 500 1000 Normal Saline - 1,000 ml 500 1000 @ 100 mls/hr IV ASDIR [facility] Rx#:[id number] IVPB 50 50 Oral 300 100 460 Output: Drainage 105 60 200 Neck 105 60 200 Urine 600 350 Mcginnis 600 350 Other: Voiding Method Indwelling Catheter Indwelling Catheter Toilet # Unmeasured Voids Mcginnis 2 Weight Measurement Method Built in [facility] Active Medications Acetaminophen (Tylenol -) 650 mg PO Q6H PRN PRN Reason: FEVER Last Admin: 11/19/17 16:03 Dose: 650 mg Chlorhexidine Gluconate (Hibiclens For Decolonization -) 1 applic TP HS [facility] Last Admin: 11/18/17 21:55 Dose: 1 applic Docusate Sodium (Colace -) 100 mg PO TID PRN PRN Reason: CONSTIPATION Gabapentin (Neurontin -) 300 mg PO BID [facility] Last Admin: 11/19/17 09:01 Dose: 300 mg Heparin Sodium (Porcine) (Heparin -) 5,000 unit SQ TID [facility] Last Admin: 11/19/17 15:10 Dose: 5,000 unit Hydromorphone HCl (Dilaudid Injection -) 0.5 mg IVPUSH [id number] PRN PRN Reason: MODERATE PAIN Hydromorphone HCl (Dilaudid Chemical Engineering Technologist -) 6 mg OIL BURNER SERVICER AND INSTALLER OIL BURNER SERVICER AND INSTALLER [facility] PRN Reason: Protocol Stop: 11/24/17 15:20 Last Admin: 11/19/17 11:24 Dose: 6 mg Cefazolin Sodium (Ancef -) 1 gm in 10 mls @ 120 mls/hr IVPUSH Q8H-IV [facility] Last Admin: 11/19/17 17:17 Dose: 120 mls/hr Mupirocin (Bactroban Ointment (For Decolonization) -) 1 applic NS BID [facility] Stop: 11/22/17 21:59 Last Admin: 11/19/17 09:02 Dose: 1 applic Ondansetron HCl (Zofran Injection) 4 mg IVPUSH Q4H PRN PRN Reason: NAUSEA AND/OR VOMITING Last Admin: 11/19/17 12:58 Dose: 4 mg Pantoprazole Sodium (Protonix -) 40 mg PO DAILY [facility] Last Admin: 11/19/17 09:01 Dose: 40 mg Promethazine HCl (Phenergan Injection -) 12.5 mg IVPUSH Q6H PRN PRN Reason: NAUSEA-FOR RESCUE AFTER 15 MIN Promethazine HCl (Phenergan Injection -) 12.5 mg IVPB Q6H PRN PRN Reason: NAUSEA AND/OR VOMITING Senna/Docusate Sodium (Pericolace -) 1 tablet PO [facility] Constitutional: Yes: Awake alert, pain controlled Eyes: Yes: WNL, PERRL HENT: Yes: Atraumatic, Normocephalic Neck: Yes: C-collar in place, Drain with minimal bloody output Cardiovascular: Yes: Regular Rate and Rhythm, Tachycardia, S1, S2 Respiratory: Yes: CTA Bilaterally no distress Gastrointestinal: Yes: Normal Bowel Sounds, Soft Renal/: Yes: Mcginnis Present Extremities: Yes: WNL Edema: No Integumentary: Yes: No rashes Wound/Incision: Yes: Dressing Dry and Intact Neurological: Yes: Drowsy, Numbness in UE ...Motor Strength: WNL Labs: CBC, BMP 11/19/17 06:15 11/19/17 06:15 Problem List - Problems (1) Neck pain Code(s): M54.2 - CERVICALGIA (2) Cervical kyphosis Code(s): M40.202 - UNSPECIFIED KYPHOSIS, CERVICAL REGION (3) Neuropathy Code(s): G62.9 - POLYNEUROPATHY, UNSPECIFIED (4) Post-op pain Code(s): G89.18 - OTHER ACUTE POSTPROCEDURAL PAIN (5) S/P spinal surgery Code(s): Z98.890 - OTHER SPECIFIED POSTPROCEDURAL STATES Assessment/Plan Neurofibromatosis S/P spinal surgery C5-C7 in 2012 Cervical kyphosis S/P C4-T1 fusion with untethering of the spinal cord PLAN: -Post-op management as per neuro surgery -Maintain cervical collar -Maintain PARTHA to bulb; monitor output -Neuro checks -Continue Kefzol -Strict I & O -Dilaudid OIL BURNER SERVICER AND INSTALLER for post-op pain -Aspiration precautions -SCDs for DVT prophylaxis To floor when bed avail [id number]
[2017-11-19] MEDS: CHLORHEXIDINE GLUCONATE 4% CLEANSER FOR DECOLONIZATION TP SCH (22:02)
[2017-11-19] MEDS: SENNOSIDES/DOCUSATE COMBO (SENNA PLUS) TABLET (UD) PO SCH (22:02)
[2017-11-20] MEDS: CEFAZOLIN 1 GM PUSH 1 GM/10 ML DISP.SYRIN IVPUSH SCH ×3 (01:09→17:26)
[2017-11-20 06:07] LABS: HEMATOCRIT 26.9 % (32.4-45.2); MCH 30.1 pg (25.7-33.7); MCHC 33.4 g/dl (32.0-36.0); MEAN CELL VOLUME 90.2 fl (80-96); MEAN PLT VOLUME 8.4 fl (7.5-11.1); PLATELET COUNT 250 K/MM3 (134-434); RBC 2.98 M/mm3 (3.60-5.2); RDW 13.1 % (11.6-15.6); WHITE BLOOD COUNT 6.4 K/mm3 (4.0-10.0)
[2017-11-20] MEDS: HEPARIN NA (PORCINE) 5,000 UNITS/ML 1ML VIAL SQ SCH ×3 (06:17→21:38)
[2017-11-20 06:36] LABS: CHLORIDE 101 mmol/L (98-107); POTASSIUM 3.2 mmol/L (3.5-5.1); SODIUM 139 mmol/L (136-145)
[2017-11-20 06:43] LABS: ALBUMIN 2.6 g/dl (3.4-5.0); ALK PHOS 56 U/L (45-117); ANION GAP 4 (8-16); BILIRUBIN,TOTAL 0.4 mg/dL (0.2-1.0); BLOOD UREA NITROGEN 4 mg/dL (7-18); CALCIUM 7.9 mg/dL (8.5-10.1); CO2 34 mmol/L (21-32); CREATININE 0.4 mg/dL (0.55-1.02); GLUCOSE,RANDOM 81 mg/dL (74-106); SGOT/AST 16 U/L (15-37); SGPT/ALT 16 U/L (12-78); TOT PROT 5.8 g/dl (6.4-8.2)
[2017-11-20] MEDS ORDERED: POTASSIUM CHLORIDE ORAL LIQUID 20 MEQ/15 ML PO ONE (10:00)
[2017-11-20] MEDS: GABAPENTIN 300 MG CAPSULE (FP) PO SCH ×2 (10:26→21:38)
[2017-11-20] MEDS: PANTOPRAZOLE 40 MG TABLET (FP) PO SCH (10:26)
[2017-11-20] MEDS: MUPIROCIN 2% TOPICAL OINTMENT FOR DECOLONIZATION NS SCH ×2 (10:26→21:40)
[2017-11-20] MEDS: HYDROmorphone *PCA* 6MG/30ML DISP.SYRIN PCA SCH ×2 (10:28→22:46)
--- NOTE | 2017-11-20 11:09 | PN ---
Progress Note (short form) - Note Progress Note: P106,BP105/61 and Spo2 97% on RA,Patient stable and c/o pain score of 3-4/ 10.Will continue POLICY AND PLANNING MANAGER today and will f/u tomorrow.
--- NOTE | 2017-11-20 15:06 | PN ---
Progress Note (short form) - Note Progress Note: PULM/CCM Patient reporting numbness to LUE & LLE. PARTHA drains appear to be draining CSF -- > PARTHA changed to thumb suction (versus full bulb suction). Neuro surgery following. Pt no longer requires ICU Level of Care. Transfer --> floor. Neuro surgery to follow. Active Medications Acetaminophen (Tylenol -) 650 mg PO Q6H PRN PRN Reason: FEVER Last Admin: 11/19/17 16:03 Dose: 650 mg Chlorhexidine Gluconate (Hibiclens For Decolonization -) 1 applic TP HS [facility] Last Admin: 11/19/17 22:02 Dose: 1 applic Docusate Sodium (Colace -) 100 mg PO TID PRN PRN Reason: CONSTIPATION Gabapentin (Neurontin -) 300 mg PO BID [facility] Last Admin: 11/20/17 10:26 Dose: 300 mg Heparin Sodium (Porcine) (Heparin -) 5,000 unit SQ TID [facility] Last Admin: 11/20/17 13:19 Dose: 5,000 unit Hydromorphone HCl (Dilaudid Injection -) 0.5 mg IVPUSH [id number] PRN PRN Reason: MODERATE PAIN Hydromorphone HCl (Dilaudid Reptile Keeper -) 6 mg WALL STEAMER WALL STEAMER [facility] PRN Reason: Protocol Stop: 11/24/17 15:20 Last Admin: 11/20/17 10:28 Dose: 6 mg Cefazolin Sodium (Ancef -) 1 gm in 10 mls @ 120 mls/hr IVPUSH Q8H-IV [facility] Last Admin: 11/20/17 17:26 Dose: 120 mls/hr Mupirocin (Bactroban Ointment (For Decolonization) -) 1 applic NS BID [facility] Stop: 11/22/17 21:59 Last Admin: 11/20/17 10:26 Dose: 1 applic Ondansetron HCl (Zofran Injection) 4 mg IVPUSH Q4H PRN PRN Reason: NAUSEA AND/OR VOMITING Last Admin: 11/19/17 12:58 Dose: 4 mg Pantoprazole Sodium (Protonix -) 40 mg PO DAILY [facility] Last Admin: 11/20/17 10:26 Dose: 40 mg Promethazine HCl (Phenergan Injection -) 12.5 mg IVPUSH Q6H PRN PRN Reason: NAUSEA-FOR RESCUE AFTER 15 MIN Promethazine HCl (Phenergan Injection -) 12.5 mg IVPB Q6H PRN PRN Reason: NAUSEA AND/OR VOMITING Senna/Docusate Sodium (Pericolace -) 1 tablet PO HS [facility] Last Admin: 11/19/17 22:02 Dose: 1 tablet V/S Temp 98.3 F 11/20/17 14:00 Pulse 90 11/20/17 18:00 Resp 18 11/20/17 18:00 BP 105/63 11/20/17 18:00 Pulse Ox 100 11/20/17 09:00 Intake & Output 11/19/17 11/20/17 11/20/17 23:59 11:59 23:59 Intake Total 610 200 600 Output Total 240 70 100 Balance 370 130 500 Weight 68.181 kg Intake: IVPB 50 50 Oral 560 200 550 Output: Drainage 240 70 100 Neck 240 70 100 Other: Voiding Method Toilet Toilet # Unmeasured Voids Mcginnis 1 1 3 Weight Measurement Method Built in [facility] GEN: The patient is awake, alert, and fully oriented, in no acute distress. HEENT: oropharynx clear without exudates, moist mucous membranes. NECK: c-collar in place. PARTHA with sanguinous drainage. PULM: Diminished anteriorly. CV: RRR, S1, S2 no m/r/g ABD: +BS, SNTND NEURO: Cranial nerves II through XII grossly intact. Strength 5/5 in all extremities. Equal sensation noted. CBC, BMP 11/20/17 05:55 11/20/17 05:55 RECENT STUDIES TO NOTE: CXR 11/14: Frontal and lateral views of the chest reveal a normal sized heart with normal vascularity. The lung santiago are clear without evidence of mass or infiltrate. The costophrenic sulci are clear. The mediastinal, osseous and soft tissue structures as visualized are normal. There are left upper quadrant surgical clips. IMPRESSION: Normal chest films. CERVICAL SPINE CT W/O 11/17: Compared to prior MRI of the cervical spine dated 07/14/2017. Anterior fusion of C4-C6 vertebral bodies again seen with interbody spacers. There is interval posterior fusion of C4-T1 with bilateral laminectomy at C5, C6 and C7 level.. A posterior drainage catheter is present at the site of surgery almost reaching the posterior epidural space. Multiple epidural air pockets are present within the spine, from the craniocervical junction down to C4 level as well as anterior to the clivus. Evaluation of the spinal canal is limited due to beam hardening artifacts from the metallic hardware. There is posterior soft tissue swelling and air at this site of surgery down to the included upper thoracic spine level, which is upper T5 level The height and alignment of the vertebral bodies appear unremarkable There is a focal low- attenuation density in the left thyroid lobe measuring 10 x 5 mm for which correlation with ultrasound is needed to assess its consistency. No gross enlarged lymph nodes are identified. ASSESS: Neurofibromatosis S/P spinal surgery C5-C7 in 2013 Cervical kyphosis S/P C4-T1 fusion w/ untethering of the spinal cord PLAN: -IS -Maintain cervical collar -Asp precautions -Maintain PARTHA to thumb suction -Neuro checks -Wean WALL STEAMER a/p Neuro surgery -Caffeine for headaches -continue Cervical collar -SCDs for DVT prophylaxis -GI prophylaxis -OOB to chair -Ambulate w/ PT -PT/OT -Transfer to Regular Room -Neuro surgery to follow up w/ f/u imaging -Neuro surgery to follow DGL, ACNP-BC [facility] ICU PULM/CCM [id number]
--- NOTE | 2017-11-20 17:44 | PN ---
Progress Note (short form) - Note Progress Note: Patient is making a good recovery from surgery. Drainage now primarily CSF. PLAN -transfer to Regular Room (private, on 8W if possible) -PARTHA changed to thumb suction (versus full bulb suction) -Wean RAZOR GRINDER and IVF -Caffeine for headaches -OOB to chair, ambulation with Physical Therapy -continue Cervical collar -Will likely remove PARTHA in AM and add Dermabond to incision line -GI/DVT Prophylaxix -MRI Brain (FIESTA protocol for Cranial Nerves to evaluate Hemifacial spasm) -MRI Cervical Spine to evaluate untethering -Hoping for discharge to apartment on Tuesday
--- NOTE | 2017-11-20 17:54 | PN ---
Physical Exam: SUBJECTIVE: Patient seen and examined in ICU. Patient reports numbness to left upper and lower extremities. OBJECTIVE: Vital Signs Period Temp Pulse Resp BP Sys/Pastrana Pulse Ox Last 24 Hr 98.3 F-99.4 F 80-101 14-18 102-119/56-79 100-100 GENERAL: The patient is awake, alert, and fully oriented, in no acute distress. ENT: oropharynx clear without exudates, moist mucous membranes. NECK: c-collar in place. PARTHA with sanguinous drainage. LUNGS: Diminished anteriorly. HEART: RRR, S1, S2 no m/r/g ABDOMEN: SNTND NEUROLOGICAL: Cranial nerves II through XII grossly intact. Strength 5/5 in all extremities. Equal sensation noted. Laboratory Results - last 24 hr 11/20/17 11/20/17 05:55 05:55 WBC 6.4 RBC 2.98 L Hgb 9.0 L Hct 26.9 L MCV 90.2 MCH 30.1 MCHC 33.4 RDW 13.1 Plt Count 250 MPV 8.4 Sodium 139 Potassium 3.2 L Chloride 101 Carbon Dioxide 34 H Anion Gap 4 L BUN 4 L Creatinine 0.4 L Creat Clearance w eGFR > 60 Random Glucose 81 Calcium 7.9 L Total Bilirubin 0.4 D AST 16 ALT 16 Alkaline Phosphatase 56 Total Protein 5.8 L Albumin 2.6 L Active Medications Generic Name Dose Route Start Last Admin Trade Name Freq PRN Reason Stop Dose Admin Acetaminophen 650 mg 11/17/17 13:52 11/19/17 16:03 Tylenol - PO 650 mg Q6H PRN Administration FEVER Chlorhexidine Gluconate 1 applic 11/17/17 22:00 11/19/17 22:02 Hibiclens For Decolonization - TP 1 applic HS LISS Administration Docusate Sodium 100 mg 11/18/17 23:47 Colace - PO TID PRN CONSTIPATION Gabapentin 300 mg 11/17/17 22:00 11/20/17 10:26 Neurontin - PO 300 mg BID LISS Administration Heparin Sodium (Porcine) 5,000 unit 11/18/17 06:00 11/20/17 13:19 Heparin - SQ 5,000 unit TID LISS Administration Hydromorphone HCl 0.5 mg 11/17/17 13:16 Dilaudid Injection - IVPUSH [id number] PRN MODERATE PAIN Hydromorphone HCl 6 mg 11/19/17 11:15 11/20/17 10:28 Dilaudid Manager Internship - MATERIALS MANAGEMENT CLERK 11/24/17 15:20 6 mg MATERIALS MANAGEMENT CLERK LISS Administration Protocol Cefazolin Sodium 1 gm in 10 mls @ 120 mls/hr 11/18/17 02:00 11/20/17 17:26 Ancef - IVPUSH 120 mls/hr Q8H-IV LISS Administration Mupirocin 1 applic 11/17/17 22:00 11/20/17 10:26 Bactroban Ointment (For Decolonization) - NS 11/22/17 21:59 1 applic BID LISS Administration Ondansetron HCl 4 mg 11/17/17 15:20 11/19/17 12:58 Zofran Injection IVPUSH 4 mg Q4H PRN Administration NAUSEA AND/OR VOMITING Pantoprazole Sodium 40 mg 11/18/17 10:00 11/20/17 10:26 Protonix - PO 40 mg DAILY LISS Administration Promethazine HCl 12.5 mg 11/17/17 13:16 Phenergan Injection - IVPUSH Q6H PRN NAUSEA-FOR RESCUE AFTER 15 MIN Promethazine HCl 12.5 mg 11/17/17 15:20 Phenergan Injection - IVPB Q6H PRN NAUSEA AND/OR VOMITING Senna/Docusate Sodium 1 tablet 11/19/17 22:00 11/19/17 22:02 Pericolace - PO 1 tablet HS LISS Administration ASSESSMENT/PLAN: A: 31 yo woman s/p repair of cervical kyphosis with tethering of spinal cord on 11/17 P: s/p Exploration of spinal fusion C4-T1 Laminectomies, C7-T1 osteotomies, posterior fusion C4-T1 with correction of deformity, microsurgical untethering of spinal cord POD #2 - c-collar per neurosurgery - PARTHA with s/s drainage-> mostly CSF per Neurosurg - continue Ancef until PARTHA removed - production superintendent hydro dilaudid per anesthesia - continue burnham until MATERIALS MANAGEMENT CLERK d/c'd - Neurontin - post-op care per Neurosurgery F/E/N - Regular diet - replete prn PPX - sqh Dispo- transfer to floor when bed available Visit type - Emergency Visit Emergency Visit: Yes ED Registration Date: 11/17/17 Care time: The patient presented to the Emergency Department on the above date and was hospitalized for further evaluation of their emergent condition. - New Patient This patient is new to me today: No - Critical Care Critical Care patient: No
[2017-11-20] MEDS: SENNOSIDES/DOCUSATE COMBO (SENNA PLUS) TABLET (UD) PO SCH (21:38)
[2017-11-20] MEDS: CHLORHEXIDINE GLUCONATE 4% CLEANSER FOR DECOLONIZATION TP SCH (21:40)
[2017-11-20] MEDS ORDERED: PROMETHAZINE HCL 25 MG/1 ML VIAL IVPB PRN (22:37)
[2017-11-20] MEDS ORDERED: ONDANSETRON 4 MG/2 ML VIAL IVPUSH PRN (22:37)
[2017-11-20] MEDS ORDERED: HYDROmorphone HCL CARPU-JECT 1 MG/1 ML DISP.SYRIN IVPUSH PRN (22:37)
[2017-11-20] MEDS ORDERED: PROMETHAZINE HCL 25 MG/1 ML VIAL IVPUSH PRN (22:37)
[2017-11-21] MEDS: HYDROmorphone *PCA* 6MG/30ML DISP.SYRIN PCA SCH (01:07)
[2017-11-21] MEDS: CEFAZOLIN 1 GM PUSH 1 GM/10 ML DISP.SYRIN IVPUSH SCH ×2 (01:11→10:00)
[2017-11-21] MEDS: ACETAMINOPHEN 325 MG TABLET (FP) PO PRN (04:48)
[2017-11-21] MEDS: HEPARIN NA (PORCINE) 5,000 UNITS/ML 1ML VIAL SQ SCH ×3 (05:25→21:38)
[2017-11-21 07:49] LABS: BASO % 0.8 % (0-2.0); EOS % 3.5 % (0-4.5); HEMATOCRIT 27.1 % (32.4-45.2); HEMOGLOBIN 8.8 GM/dL (10.7-15.3); LYMPH % 31.5 % (8-40); MCH 29.5 pg (25.7-33.7); MCHC 32.5 g/dl (32.0-36.0); MEAN CELL VOLUME 90.8 fl (80-96); MONO % 9.6 % (3.8-10.2); NEUT % 54.6 % (42.8-82.8); PLATELET COUNT 265 K/MM3 (134-434); RBC 2.98 M/mm3 (3.60-5.2); RDW 13.1 % (11.6-15.6); WHITE BLOOD COUNT 6.8 K/mm3 (4.0-10.0)
[2017-11-21 08:20] LABS: CHLORIDE 101 mmol/L (98-107); POTASSIUM 3.4 mmol/L (3.5-5.1); SODIUM 138 mmol/L (136-145)
[2017-11-21 08:26] LABS: ALBUMIN 2.5 g/dl (3.4-5.0); ALK PHOS 56 U/L (45-117); ANION GAP 6 (8-16); BILIRUBIN,TOTAL 0.4 mg/dL (0.2-1.0); BLOOD UREA NITROGEN 6 mg/dL (7-18); CALCIUM 7.8 mg/dL (8.5-10.1); CO2 31 mmol/L (21-32); CREATININE 0.3 mg/dL (0.55-1.02); GLUCOSE,RANDOM 78 mg/dL (74-106); SGOT/AST 14 U/L (15-37); SGPT/ALT 16 U/L (12-78); TOT PROT 5.6 g/dl (6.4-8.2)
[2017-11-21] MEDS ORDERED: IBUPROFEN 600 MG TABLET (FP) PO PRN (09:49)
--- NOTE | 2017-11-21 09:52 | PN ---
Progress Note (short form) - Note Progress Note: Pain followup Patient agreed to DC COMPRESSOR ASSEMBLER and oral medications instead. A/P COMPRESSOR ASSEMBLER is discontinued. Catrachita Alfred MD.
[2017-11-21] MEDS ORDERED: PT OWN MED DRAWER 7, Y5N ONE (09:55)
[2017-11-21] MEDS ORDERED: GABAPENTIN 300 MG CAPSULE (FP) PO SCH (10:00)
--- NOTE | 2017-11-21 10:26 | PN ---
Progress Note (short form) - Note Progress Note: POD #3 Alert. HOB at 30 degrees. Pillow behind head. Wearing her cervical collar as instructed. Still using her SLOT TECHNICIAN for pain. States she ambulated to bathroom and her headache increased significantly. Also, still c/o upper extremity pain/ parasthesia (R>L). Denies n//f/c, or visual disturbances. Last Vital Signs Temp Pulse Resp BP Pulse Ox 98.1 F 77 20 103/64 100 18 05:53 11/21/17 05:53 11/21/17 05:53 18 05:53 /18 21:52 CBC, BMP //18 06:10 11/21/17 06:10 Gen: alert. nad Neck: anterior neck soft. trach midline. Posterior vertical incision intact. Skin edges approximated with oksana/dermabond. PARTHA drain with 50mL (csf). Neuro: UE GMNI Problem List - Problems (1) S/P spinal surgery Assessment/Plan: POD #3 s/p Exploration of spinal fusion C4-T1 Laminectomies, C7-T1 osteotomies, posterior fusion C4-T1 with correction of deformity, microsurgical untethering of spinal cord. PARTHA dc'd on rounds per Dr. Bowers following imaging studies ordered: 1. MRI -->brain (cranial nerve protocol to eval right ish-facial spasm 2. MRA 3. C-Spine MRI No pillow behind her head Wear your cervical collar 23 out of 24 hours Can take off her collar briefly to eat Dressing changed on rounds SLOT TECHNICIAN management per stacy Gibbons 3.4 --> replete Aboe discussed with Dr. Bowers and agrees Code(s): Z98.890 - OTHER SPECIFIED POSTPROCEDURAL STATES
[2017-11-21] MEDS ORDERED: POTASSIUM CHLORIDE TABS 20 MEQ TABLET.ER (FP) PO ONE ×2 (12:07→14:30)
[2017-11-21] MEDS ORDERED: ACETAMINOPHEN 325 MG TABLET (FP) PO PRN (17:38)
[2017-11-21] MEDS: oxyCODONE HCL 5 MG TABLET PO PRN (19:21)
--- NOTE | 2017-11-21 20:03 | PN ---
Physical Exam: SUBJECTIVE: Patient seen and examined at bedside. Complaining of headache, just given Tylenol. Still using LOG TRUCK DRIVER. Discussed discontinuing and switching to PO pain meds. Patient agreeable. OBJECTIVE: Vital Signs Period Temp Pulse Resp BP Sys/Pastrana Pulse Ox Last 24 Hr 98.1 F-99.3 F 75-93 18-20 103-121/58-73 100 GENERAL: The patient is awake, alert, and fully oriented, in no acute distress. NECK: Hard cervical collar in place. LUNGS: CTA HEART: RRR, S1, S2 no m/r/g ABDOMEN: soft, not tender, not distended, + bowel sounds NEUROLOGICAL: Cranial nerves II through XII grossly intact. Moving all extremities freely. Laboratory Results - last 24 hr 11/21/17 11/21/17 06:10 06:10 WBC 6.8 RBC 2.98 L Hgb 8.8 L Hct 27.1 L MCV 90.8 MCH 29.5 MCHC 32.5 RDW 13.1 Plt Count 265 MPV 9.0 Neutrophils % 54.6 D Lymphocytes % 31.5 D Monocytes % 9.6 Eosinophils % 3.5 Basophils % 0.8 Sodium 138 Potassium 3.4 L Chloride 101 Carbon Dioxide 31 Anion Gap 6 L BUN 6 L Creatinine 0.3 L Creat Clearance w eGFR > 60 Random Glucose 78 Calcium 7.8 L Total Bilirubin 0.4 AST 14 L ALT 16 Alkaline Phosphatase 56 Total Protein 5.6 L Albumin 2.5 L Active Medications Generic Name Dose Route Start Last Admin Trade Name Freq PRN Reason Stop Dose Admin Acetaminophen 650 mg 11/20/17 22:37 11/21/17 04:48 Tylenol - PO 650 mg Q6H PRN Administration FEVER Acetaminophen 650 mg 11/21/17 17:38 11/21/17 19:20 Tylenol - PO 650 mg Q8H PRN Administration PAIN SCALE 6-10 Docusate Sodium 100 mg 11/20/17 22:37 Colace - PO TID PRN CONSTIPATION Heparin Sodium (Porcine) 5,000 unit 11/21/17 06:00 11/21/17 14:10 Heparin - SQ 5,000 unit TID LISS Administration Hydromorphone HCl 0.5 mg 11/20/17 22:37 Dilaudid Injection - IVPUSH [id number] PRN MODERATE PAIN Ondansetron HCl 4 mg 11/20/17 22:37 Zofran Injection IVPUSH Q4H PRN NAUSEA AND/OR VOMITING Oxycodone HCl 10 mg 11/21/17 17:37 11/21/17 19:21 Roxicodone - PO 10 mg Q8H PRN Administration PAIN SCALE 6-10 Pregabalin 90 mg 11/22/17 10:00 Lyrica - PO DAILY LISS Promethazine HCl 12.5 mg 11/20/17 22:37 Phenergan Injection - IVPB Q6H PRN NAUSEA AND/OR VOMITING Senna/Docusate Sodium 1 tablet 11/21/17 22:00 Pericolace - PO HS LISS ASSESSMENT/PLAN 31 year-old female with a PMH significant for neurofibromatosis, cervical kyphosis, and s/p anterior cervical discectomy and fusion C5-C7 (2012). Admitted for exploration of spinal fusion, C4-T1 laminectomies, C7-T1 osteotomies, posterior fusion C4-T1 with correction of deformity, and microsurgical untethering of spinal cord with Dr. Bowers. POD #4 --maintain C-collar --still using LOG TRUCK DRIVER being managed by anesthesia --bowel regimen Hypokalemia --repleted FEN Fluids: PO intake adequate Electrolytes: replete as indicated Nutrition: regular diet DVT prophylaxis: subq heparin, oob, ambulation Physical therapy Dispo: continues to require inpatient care. Visit type - Emergency Visit Emergency Visit: Yes ED Registration Date: 11/17/17 Care time: The patient presented to the Emergency Department on the above date and was hospitalized for further evaluation of their emergent condition. - New Patient This patient is new to me today: No - Critical Care Critical Care patient: No
[2017-11-21] MEDS: SENNOSIDES/DOCUSATE COMBO (SENNA PLUS) TABLET (UD) PO SCH (21:38)
[2017-11-21] MEDS: DOCUSATE SODIUM 100 MG CAPSULE (FP) PO PRN (21:38)
[2017-11-22] MEDS: HEPARIN NA (PORCINE) 5,000 UNITS/ML 1ML VIAL SQ SCH ×3 (06:28→21:47)
[2017-11-22 08:08] LABS: ANION GAP 9 (8-16); BLOOD UREA NITROGEN 6 mg/dL (7-18); CALCIUM 8.9 mg/dL (8.5-10.1); CHLORIDE 100 mmol/L (98-107); CO2 29 mmol/L (21-32); GLUCOSE,RANDOM 89 mg/dL (74-106); MAGNESIUM 1.9 mg/dL (1.8-2.4); POTASSIUM 3.9 mmol/L (3.5-5.1); SODIUM 138 mmol/L (136-145)
[2017-11-22 08:09] LABS: CREATININE 0.3 mg/dL (0.55-1.02)
[2017-11-22] MEDS ORDERED: PREGABALIN 100 MG CAPSULE PO SCH (10:00)
[2017-11-22] MEDS ORDERED: PT OWN MED DRAWER 7, Y5N ONE (10:06)
[2017-11-22] MEDS ORDERED: PREGABALIN 50 MG CAPSULE PO SCH (10:09)
[2017-11-22] MEDS: PREGABALIN 50 MG CAPSULE PO SCH (10:44)
--- NOTE | 2017-11-22 10:52 | PN ---
Physical Exam: SUBJECTIVE: Patient seen and examined oob to chair. Reports numbness to left 4th and 5th fingers, some pain in right fingers. Otherwise feels well and wants to go home today to home in [place]. OBJECTIVE: Vital Signs Period Temp Pulse Resp BP Sys/Pastrana Pulse Ox Last 24 Hr 98.2 F-99.3 F 76-93 18-20 106-126/65-77 100 GENERAL: The patient is awake, alert, and fully oriented, in no acute distress. NECK: Hard cervical collar in place. LUNGS: CTA HEART: RRR, S1, S2 no m/r/g ABDOMEN: soft, not tender, not distended, + bowel sounds NEUROLOGICAL: Cranial nerves II through XII grossly intact. Moving all extremities freely. CBCD WBC 6.8 K/mm3 (4.0-10.0) 11/21/17 06:10 RBC 2.98 M/mm3 (3.60-5.2) L 11/21/17 06:10 Hgb 8.8 GM/dL (10.7-15.3) L 11/21/17 06:10 Hct 27.1 % (32.4-45.2) L 11/21/17 06:10 MCV 90.8 fl (80-96) 11/21/17 06:10 MCHC 32.5 g/dl (32.0-36.0) 11/21/17 06:10 RDW 13.1 % (11.6-15.6) 11/21/17 06:10 Plt Count 265 K/MM3 (134-434) 11/21/17 06:10 MPV 9.0 fl (7.5-11.1) 11/21/17 06:10 CMP Sodium 138 mmol/L (136-145) 11/22/17 06:00 Potassium 3.9 mmol/L (3.5-5.1) 11/22/17 06:00 Chloride 100 mmol/L (98-107) 11/22/17 06:00 Carbon Dioxide 29 mmol/L (21-32) 11/22/17 06:00 Anion Gap 9 (8-16) 11/22/17 06:00 BUN 6 mg/dL (7-18) L 11/22/17 06:00 Creatinine 0.3 mg/dL (0.55-1.02) L 11/22/17 06:00 Creat Clearance w eGFR > 60 (>60) 11/21/17 06:10 Calcium 8.9 mg/dL (8.5-10.1) 11/22/17 06:00 Total Bilirubin 0.4 mg/dL (0.2-1.0) 11/21/17 06:10 AST 14 U/L (15-37) L 11/21/17 06:10 ALT 16 U/L (12-78) 11/21/17 06:10 Alkaline Phosphatase 56 U/L (45-117) 11/21/17 06:10 Total Protein 5.6 g/dl (6.4-8.2) L 11/21/17 06:10 Albumin 2.5 g/dl (3.4-5.0) L 11/21/17 06:10 Active Medications Generic Name Dose Route Start Last Admin Trade Name Freq PRN Reason Stop Dose Admin Acetaminophen 650 mg 11/20/17 22:37 11/21/17 04:48 Tylenol - PO 650 mg Q6H PRN Administration FEVER Acetaminophen 650 mg 11/21/17 17:38 11/21/17 19:20 Tylenol - PO 650 mg Q8H PRN Administration PAIN SCALE 6-10 Docusate Sodium 100 mg 11/20/17 22:37 11/21/17 21:38 Colace - PO 100 mg TID PRN Administration CONSTIPATION Heparin Sodium (Porcine) 5,000 unit 11/21/17 06:00 11/22/17 06:28 Heparin - SQ 5,000 unit TID LISS Administration Hydromorphone HCl 0.5 mg 11/20/17 22:37 11/22/17 00:54 Dilaudid Injection - IVPUSH 0.5 mg [id number] PRN Administration MODERATE PAIN Ondansetron HCl 4 mg 11/20/17 22:37 Zofran Injection IVPUSH Q4H PRN NAUSEA AND/OR VOMITING Oxycodone HCl 10 mg 11/21/17 17:37 11/21/17 19:21 Roxicodone - PO 10 mg Q8H PRN Administration PAIN SCALE 6-10 Pregabalin 100 mg 11/22/17 10:15 11/22/17 10:44 Lyrica - PO 100 mg DAILY LISS Administration Promethazine HCl 12.5 mg 11/20/17 22:37 Phenergan Injection - IVPB Q6H PRN NAUSEA AND/OR VOMITING Senna/Docusate Sodium 1 tablet 11/21/17 22:00 11/21/17 21:38 Pericolace - PO 1 tablet HS LISS Administration ASSESSMENT/PLAN: 31 year-old female with a PMH significant for neurofibromatosis, cervical kyphosis, and s/p anterior cervical discectomy and fusion C5-C7 (2012). Admitted for exploration of spinal fusion, C4-T1 laminectomies, C7-T1 osteotomies, posterior fusion C4-T1 with correction of deformity, and microsurgical untethering of spinal cord with Dr. Bowers. POD #5 --maintain C-collar --[employer] d/c'd 11/21 --dilaudid, oxycodone PRN --bowel regimen --imaging studies pending: MRI/MRA brain, MRI c-spine Hypokalemia, resolved FEN Fluids: PO intake adequate Electrolytes: replete as indicated Nutrition: regular diet DVT prophylaxis: subq heparin, oob, ambulation Physical therapy Dispo: continues to require inpatient care. Visit type - Emergency Visit Emergency Visit: Yes ED Registration Date: 11/17/17 Care time: The patient presented to the Emergency Department on the above date and was hospitalized for further evaluation of their emergent condition. - New Patient This patient is new to me today: No - Critical Care Critical Care patient: No
[2017-11-22] MEDS: oxyCODONE HCL 5 MG TABLET PO PRN (20:09)
[2017-11-22] MEDS: ACETAMINOPHEN 325 MG TABLET (FP) PO PRN (20:11)
[2017-11-22] MEDS: SENNOSIDES/DOCUSATE COMBO (SENNA PLUS) TABLET (UD) PO SCH (21:47)
[2017-11-22] MEDS: DOCUSATE SODIUM 100 MG CAPSULE (FP) PO PRN (21:48)
[2017-11-23] MEDS: ACETAMINOPHEN 325 MG TABLET (FP) PO PRN ×2 (02:58→11:45)
[2017-11-23] MEDS: oxyCODONE HCL 5 MG TABLET PO PRN ×2 (03:54→11:45)
[2017-11-23] MEDS: HEPARIN NA (PORCINE) 5,000 UNITS/ML 1ML VIAL SQ SCH (06:46)
[2017-11-23] MEDS: PREGABALIN 50 MG CAPSULE PO SCH (10:22)
[2017-11-23 15:02] VITALS: BP 116/70; PULSE 92; TEMP 98.2
--- NOTE | 2017-11-23 15:58 | DS ---
Physical Exam: SUBJECTIVE: Patient seen and examined OBJECTIVE: Vital Signs Period Temp Pulse Resp BP Sys/[place] Pulse Ox Last 24 Hr 98.0 F-98.4 F 80-100 18-20 95-116/59-70 100-100 PHYSICAL EXAM GENERAL: The patient is awake, alert, and fully oriented, in no acute distress. HEAD: Normal with no signs of trauma. EYES: PERRL, extraocular movements intact, sclera anicteric, conjunctiva clear. ENT: Ears normal, nares patent, oropharynx clear without exudates, moist mucous membranes. NECK: Trachea midline, full range of motion, supple. LUNGS: Breath sounds equal, clear to auscultation bilaterally, no wheezes, no crackles, no accessory muscle use. HEART: Regular rate and rhythm, S1, S2 without murmur, rub or gallop. ABDOMEN: Soft, nontender, nondistended, normoactive bowel sounds, no guarding, no rebound, no hepatosplenomegaly, no masses. EXTREMITIES: 2+ pulses, warm, well-perfused, no edema. NEUROLOGICAL: Cranial nerves II through XII grossly intact. Normal speech, gait not observed. PSYCH: Normal mood, normal affect. SKIN: Warm, dry, normal turgor, no rashes or lesions noted. LABS HOSPITAL COURSE: Date of Admission:11/17/17 Date of Discharge: 11/23/17 Minutes to complete discharge: 35 Discharge Summary Reason For Visit: CERVICAL KYPHOSIS WITH CORD TETHERING Current Active Problems Cervical kyphosis (Acute) Neck pain (Acute) Neuropathy (Acute) Post-op pain (Acute) S/P spinal surgery (Acute) Condition: Improved - Instructions Diet, Activity, Other Instructions: Dr. Bowers Discharge Instructions Dear DOROTHY JAMISON, Post Operative Instructions Physical activity Resume your normal everyday activity as tolerated no heavy lifting or exercise until seen by your surgeon. You may walk unlimited amounts and climb stairs. Do not drive a vehicle until cleared by your surgeon. Wear the c-collar 23 hours/ day, you may remove it to shower only. Wound care Keep incision clean and dry. You can shower but cover the incision with plastic wrap, after, pat dry and re-apply clean, dry dressing. Do not submerge the incision until oksana are removed by your surgeon. Do not apply ointments or cream over incision site. Diet There are no dietary restrictions. Eat healthy, high-fiber foods. Drink 6 to 8 glasses of liquid each day. This will assist in keeping your bowels are regular. Pain management You may take Tylenol or acetaminophen. Any pain prescription medication ordered should be taken as prescribed for moderate to severe pain. Call for any of the following: Severe pain not relieved by medication Fever of 101 or higher Excessive bleeding or drainage on dressing Inability to urinate New or worsening neurological symptoms Call the office to confirm your appointment for 12/07/17. Referrals: Jarett Bowers MD, [facility] [Staff Physician] - 2 Weeks Disposition: HOME - Home Medications Comprehensive Discharge Medication List: Ambulatory Orders Multivitamin [One Daily] 1 each PO DAILY 11/14/17 Pregabalin [Lyrica] 90 mg PO DAILY 11/14/17 Oxycodone HCl/Acetaminophen [Percocet 5-325 mg Tablet] 1 - 2 tab PO Q4H #30 tab MDD 6 11/23/17 This patient is new to me today: No Emergency Visit: Yes ED Registration Date: 11/17/17 Care time: The patient presented to the Emergency Department on the above date and was hospitalized for further evaluation of their emergent condition. Critical Care patient: No - Discharge Referral Referred to [facility] No
== END 2017-11-23 17:00 | disposition home or self-care (01) | DRG 321 ==
LOC: JSAMEDAYSX 05:18 → JICU 15:39 → J8W 11-20 22:15
PROVIDERS: ADMIT Neurological Surgery; ATTEND Nurse Practitioner Acute Care
PROC: 0RG2071 Fusion of 2 or more Cervical Vertebral Joints with Autologous Tissue Substitute, Posterior Approach, Posterior Column, Open Approach (ICD-10-PCS; 2017-11-17)
PROC: 0JX70ZB Transfer Back Subcutaneous Tissue and Fascia with Skin and Subcutaneous Tissue, Open Approach (ICD-10-PCS; 2017-11-17)
PROC: 0PB30ZZ Excision of Cervical Vertebra, Open Approach (ICD-10-PCS; principal; 2017-11-17 08:00)
DX: M40.292 Other kyphosis, cervical region (principal); E87.6 Hypokalemia; G62.9 Polyneuropathy, unspecified; G89.18 Other acute postprocedural pain; M54.2 Cervicalgia
CPT/HCPCS: 36415; 70545-TC; 70552-TC; 72125-TC; 72141-TC; 76000-TC-FY; 80048; 80053; 83735; 85025; 85027; 86850; 86900; 86901; 90688; 94010; 97116-GP; 97161-GP; J1170; J1644